=== PATIENT | female | born 1980 | race Caucasian/White ===

== ENCOUNTER → 2023-08-16 | Outpatient (CLI) | payer MEDICAID, SELFPAY ==
[2023-08-16 17:16] LABS: Hematocrit 40.3 % (37-47); Hemoglobin 12.7 g/dL (12.0-15.0); Mean Corp Hgb Conc 31.5 g/dL (32-36); Mean Corpuscular Hgb 30.5 pg (27.0-32.0); Mean Corpuscular Volume 96.6 fL (81-99); Mean Platelet Vol. 11.5 fl (6.2-12.0); Platelet Count 310 K/mm3 (150-450); RBC Distribution Width CV 12.7 % (11.6-14.6); RBC Distribution Width SD 45.2 fl (35.1-43.9); Red Blood Count 4.17 M/mm3 (4.2-5.4); White Blood Count 7.7 K/mm3 (4.4-11.0)
[2023-08-16 18:00] LABS: hCG Titer Quant., Serum 934 mIU/mL (1-3)
== END | disposition home or self-care (01) ==
PROVIDERS: Visit Provider Obstetrics & Gynecology
DX: O03.9 Complete or unspecified spontaneous abortion without complication (principal); O46.90 Antepartum hemorrhage, unspecified, unspecified trimester
CPT/HCPCS: 36415; 84702; 85027; 86900; 86901

== ENCOUNTER → 2024-05-09 | Outpatient (CLI) | payer MEDICAID, SELFPAY ==
[2024-05-09 13:28] LABS: Absolute Lymphocyte Count 1.08 X10^3/uL (0.83-4.51); Absolute Neutrophil Count 3.1 X10^3/uL (2.0-7.7); Basophil# 0.06 X10^3/uL; Basophil% 1.3 % (0-1); Eosinophils% 2.1 % (0-5); Hematocrit 39.7 % (37-47); Hemoglobin 12.9 g/dL (12.0-15.0); Lymphocyte # 1.08 X10^3/ul (0.83-4.51); Lymphocyte % 22.9 % (19-41); Mean Corp Hgb Conc 32.5 g/dL (32-36); Mean Corpuscular Volume 95.4 fL (81-99); Mean Platelet Vol. 12.2 fl (6.2-12.0); Monocyte# 0.39 X10^3/uL; Monocyte% 8.3 % (0-10); NRBC Flagged by Analyzer 0 % (0-5); Neutrophil # 3.07 X10^3/uL (2.7-7.7); Platelet Count 205 K/mm3 (150-450); RBC Distribution Width SD 42.5 fl (35.1-43.9); Red Blood Count 4.16 M/mm3 (4.2-5.4); White Blood Count 4.7 K/mm3 (4.4-11.0)
[2024-05-09 13:58] LABS: Hemoglobin A1c 4.9 % (3.8-5.6)
[2024-05-09 14:01] LABS: ALB/GLOB Ratio 1.1 RATIO (0.9-2.4); AST(SGOT) 25 U/L (15-37); Alanine Aminotransfer ALT/SGPT 25 U/L (13-56); Albumin, Serum 3.7 g/dL (3.2-5.0); Alkaline Phosphatase 72 U/L (45-117); Anion Gap 8 (5-15); BUN 15 mg/dL (7-18); Calcium,Total 8.5 mg/dL (8.5-10.1); Chloride 105 mmol/L (98-107); Creatinine, Serum 0.71 mg/dL (0.55-1.02); EST Glomerular Filtration Rate 95 mL/min (>60); Est Glom Filt Rate - Afr Amer 115 mL/min (>60); Globulin 3.3 g/dL (2.2-4.2); Glucose 123 mg/dL (74-106); Potassium 3.7 mmol/L (3.5-5.1); Sodium Level 139 mmol/L (136-145)
== END | disposition home or self-care (01) ==
PROVIDERS: PCP Nurse Practitioner Family; Referring Provider Nurse Practitioner Family; Visit Provider Nurse Practitioner Family
DX: R55 Syncope and collapse (principal)
CPT/HCPCS: 36415; 80053; 83036; 84443; 85025

== ENCOUNTER 2025-02-15 04:35 | Inpatient (IN) | payer MEDICAID, SELFPAY ==
[2025-02-15] VITALS (49 sets, daily range): BP systolic 100–132; BP diastolic 59–73; PULSE 50–79; RESP 16–18; TEMP 36.6–36.9; O2SAT 93–100; BMI 28.9
[2025-02-15] MEDS: Lactated Ringers 1,000 ML 999 ML IV (04:35)
[2025-02-15 04:45] LABS: ROM Internal Control Test YES-OK TO RESULT pt. (Internal QC)
[2025-02-15 04:46] LABS: ROM Patient Test POSITIVE (Negative); Record Kit Lot#, ROM+ K3358
[2025-02-15 05:23] LABS: Absolute Lymphocyte Count 1.39 X10^3/uL (0.83-4.51); Absolute Neutrophil Count 3.7 X10^3/uL (2.0-7.7); Basophil# 0.03 X10^3/uL; Basophil% 0.5 % (0-1); Eosinophil# 0.07 X10^3/uL; Eosinophils% 1.2 % (0-5); Hematocrit 39.5 % (37-47); Hemoglobin 13.4 g/dL (12.0-15.0); Lymphocyte # 1.39 X10^3/ul (0.83-4.51); Lymphocyte % 23.8 % (19-41); Mean Corp Hgb Conc 33.9 g/dL (32-36); Mean Corpuscular Volume 94.3 fL (81-99); Mean Platelet Vol. 12.8 fl (6.2-12.0); Monocyte# 0.62 X10^3/uL; Monocyte% 10.6 % (0-10); NRBC Flagged by Analyzer 0 % (0-5); Neutrophil % 63.4 % (47-70); Platelet Count 176 K/mm3 (150-450); RBC Distribution Width CV 12.6 % (11.6-14.6); RBC Distribution Width SD 43.8 fl (35.1-43.9); Red Blood Count 4.19 M/mm3 (4.2-5.4); White Blood Count 5.8 K/mm3 (4.4-11.0)
--- NOTE | 2025-02-15 06:04 | PLAC_PTH ---
PATIENT: PACO RAMIREZ LOC: [facility] U#:[id number] AGE/SX: 45/F ROOM: WP017 RE02/15/[address]: Dr. Janine Deutsch, MDDOB: 1980 BED: 1 DIS: 02/16/2025 SPEC #: [id number] RECD: 02/15/25 07:19 STATUS: ALEJANDRINA STEELEIdania #: [id number] VIANEY: 02/15/25 06:[address]: Janine Deutsch DEPT: SURGICAL PATHOLOGY RECD BY: Nikhil Trevino ENTERED: 02/16/25 08:55 SP TYPE: PLACENTA OTHR DR: Nava Grey, [facility], HOT BALLER-C Tissues: A - Placenta, NOS Procedures: Surgery Specimen Level V HEADER OPERATION: Delivery PRE-OP DIAGNOSIS: Routine TISSUE SUBMITTED: A- Placenta MICROSCOPIC DIAGNOSIS A. Placenta, delivery: * Eccentrically inserted and trivascular umbilical cord without active inflammation * Marginally inserted membranes without active inflammation and with increased number of pigmented macrophages suggesting meconium * Mature (third trimester) placenta without active inflammation and with increased number of pigmented macrophages, suggesting meconium and with one intramural infarct (1.2 cm in maximum diameter) MICROSCOPIC DESCRIPTION Slides are reviewed. GROSS DESCRIPTION A. Received in formalin in a container labeled with the patient's name, date of , and with the accompanying paperwork indicating, placenta is an 18.5 x 14.0 x 4.0 cm duarte and discoid placenta with a trimmed weight of 494.2 g. The eccentrically located white-mike umbilical cord has 3 vessels and is 58 cm in length x 1.0 cm in diameter. There are approximately 6 coils per 10 cm. The mike-barrera membranes are stripped and completely mucoid/slippery. The membranes appear to exhibit a 100% marginal attachment site. The surface is blue-barrera, mucoid and slippery, with prominent vasculature. There is a 0.9 x 0.8 cm focus of possible subchorionic fibrin comprising less than 2% of the surface. The maternal surface has red-barrera cotyledons that appear predominantly complete with a moderate amount of easily removed blood clot material. Serial sections reveal a 1.2 x 1.0 x 0.5 cm white-mike and rubbery focus with adjacent hemorrhage comprising less than 5% of the parenchymal surface. The remaining cut surfaces are red and spongy. Senior Network Systems Engineer sections:A1. Umbilical cord and membrane rollA2. Full-thickness section with possible subchorionic fibrinA3. Superficial section with rubbery area and adjacent hemorrhageA4. Full-thickness section [facility] 02-16-2025 CPT:28972
[2025-02-15 06:06] LABS: Syphilis Antibodies Nonreactive (Nonreactive)
[2025-02-15] MEDS: Oxytocin 15 Units/NS 250ml 15 UNITS/250 ML IV.SOLN 334 UNITS IV (06:10)
--- NOTE | 2025-02-15 06:35 | PCM.HP.OB ---
HPI - General General Date of Admission: 02/15/25 HPI Narrative PACO RAMIREZ, is a 45 F @ 39.2 weeks who presents c/o SROM at 3am- not feeling contractions upon arrival [facility] Medical History (Updated 02/15/25 @ 06:[address] Janine Deutsch MD) Abnormal Pap smear of cervix Allergy/AdvReac Type Severity Reaction Status Date / Time No Known Allergies Allergy Verified 02/15/25 04:08 Social History (System 11/08/23 @ 10:49 by Olya Aguila) Smoking Status: Never smoker History Elective abortions Hx Para 1 Spontaneous abortions Hx # Term Pregnancies Ectopic pregnancies Hx # Pregnancies Multiple births # of living children NST FHR Rate Baby A Baseline: 140 Variability:: Moderate Accelerations:: 15 x 15 Decelerations:: Variable NST Reactive:: Yes FHR Category:: Category II Uterine Activity:: irregular Vital Signs Vital Signs Vital Signs: 02/15/25 04:13 02/15/25 04:13 02/15/25 04:13 Temperature Temperature Source Temporal Pulse Rate 50 L Respiratory Rate Blood Pressure 124/68 H BP Systolic 124 BP Diastolic 68 Pulse Ox 02/15/25 04:13 02/15/25 04:13 02/15/25 05:09 Temperature 97.8 F Temperature Source Temporal Pulse Rate Respiratory Rate 16 Blood Pressure BP Systolic BP Diastolic Pulse Ox 02/15/25 05:09 02/15/25 05:09 02/15/25 05:09 Temperature Temperature Source Pulse Rate 61 Respiratory Rate 16 Blood Pressure 132/70 H BP Systolic 132 BP Diastolic 70 Pulse Ox 02/15/25 05:09 02/15/25 06:02 02/15/25 06:02 Temperature 97.9 F Temperature Source Pulse Rate 79 Respiratory Rate Blood Pressure BP Systolic BP Diastolic Pulse Ox 98 02/15/25 06:30 02/15/25 06:30 02/15/25 06:33 Temperature Temperature Source Pulse Rate 67 64 Respiratory Rate Blood Pressure 123/59 H BP Systolic 123 BP Diastolic 59 Pulse Ox 02/15/25 06:33 Temperature Temperature Source Pulse Rate Respiratory Rate Blood Pressure BP Systolic BP Diastolic Pulse Ox 97 Weight Weight: 91.5 kg Body Mass Index (BMI) 28.9 Physical Exam Const alert and oriented x3 General Appearance: cooperative HEENT normocephalic GI GI Narrative: Gravid, non tender to palpation. OB / External & Speculum: external exam normal Extremity normal to inspection Skin no rashes or lesions noted Neuro oriented x3 and CN's II-XII intact bilaterally Psych Appearance: grossly normal Labs Labs Labs: Blood Type O POSITIVE Antibody Screen Pending Hct 39.5 % (37-47) Hgb 13.4 g/dL (12.0-15.0) Syphilis Total Ab Nonreactive (Nonreactive) Assessment & Plan (1) AMA (advanced maternal age) multigravida 35+: (2) 39 weeks gestation of : (3) Active labor at term: PLAN: Plan Admit to L&D Mont[place] FHR/TOCO Epidural if requested for pain Monitor VS Anticipate
--- NOTE | 2025-02-15 06:37 | EX.PCM.OBVAG ---
Vaginal Delivery Maternal Presentation Maternal Presentation: Active Labor and Spontaneous Rupture of Membranes Vaginal Delivery Information Procedure Performed: Spontaneous Vaginal Delivery Surgeon/Practitioner: Janine Deutsch Date of Procedure: 02/15/25 Pre-Procedure Diagnosis: AMA, SROM, Active labor at 39 weeks gestation Post-Procedure Diagnosis: same, precipitous delivery, live female Type of anesthesia: None Estimated Blood Loss: 150 Time of Delivery: 06:04 Findings Description of procedure: Patient presented to labor and delivery with spontaneous rupture membranes was found to be 4/60/-2. Patient progressed quickly to fully dilated and began to push. I was notified of status at 0601 and was enroute to hospital- pt delivered spontaneously with nursing staff available at 0604. upon my arrival placenta was still intact. pitocin IV was started and Placenta was delivered intact- there were trailing membranes that were removed completely. placenta appeared to have clots present and will be sent to pathology for possible abruption. 1st degree periurethral laceration that was actively bleeding superior and left adjacent to it. this was repaired with 3-0 rapide. excellent hemostasis noted. correct needle, instrument and lap count Presentation: Vertex Amniotic Membrane Rupture Type: Spontaneous Amniotic Fluid Description: Clear Placental Delivery Description: Spontaneous Placenta Disposition: Sent to Pathology Specimen collected: Yes Description of specimen(s) removed: placenta Cord Vessel Description: 3 Vessels Cord Entanglement: None A Gender: Female (1 minute): 8 (5 minute): 9 Delayed Cord Clamping: Yes Heel Slugger lifestyle block farmer: No Post Vaginal Deli Medications given after delivery: IV Pitocin Episiotomy Description: None Laceration: Periurethral Extnsion/lac and 1st degree Complication Complications: No
[2025-02-15] MEDS: Lidocaine 1% (20 ml mdv) 20 ML Vial INFILT (06:40)
[2025-02-15] MEDS: Oxytocin 15 Units/NS 250ml 15 UNITS/250 ML IV.SOLN 83 UNITS IV (06:41)
[2025-02-15 07:20] LABS: Pathology Specimen OB SEE PATHOLOGY REPORT
[2025-02-15] MEDS: Acetaminophen 500 MG Tablet 1000 MG PO ×2 (08:40→16:09)
[2025-02-15] MEDS: Ibuprofen 600 MG Tablet PO (20:49)
[2025-02-16] VITALS (8 sets, daily range): BP systolic 104–121; BP diastolic 66–75; PULSE 54–61; RESP 16–18; TEMP 36.1–36.8; O2SAT 92–99
--- NOTE | 2025-02-16 02:53 | VDLE_ITS ---
Reason For Study Reason For Study: Right leg swelling RIGHT LEFT GSV is normal. CFV is compressible, spontaneous, phasic, competent, CFV is compressible, spontaneous, phasic, competent and demonstrates normal augmentation. and demonstrates normal augmentation. FV is compressible, phasic, and INCOMPETENT for greater than 1.0 second. POP V is compressible, spontaneous, phasic, competent and demonstrates normal augmentation. T/P Trunk is compressible. PTV is compressible. RT PerV is compressible. Thrombus filled varicose veins noted in the lateral distal thigh to mid calf. Procedure This is a venous duplex using B-mode, color flow and spectral Doppler. Exam performed portable in patient room. A preliminary report was called and/or faxed to [facility]. VL/Venous Duplex US, Unilateral Interpretation Summary Deep veins of the right lower extremity are patent and compressible segmentally . There is no evidence of right lower extremity deep vein thrombosis. The right femoral vein is incompetent. The righ t great saphenous vein appears patent and compressible segmentally. Acute superficial thrombophlebitis is noted involving superficial varicosities in the lateral aspect of the right distal thigh and proximal/mid-calf. The left common femoral vein is patent and competent. Ordering Physician: Janine Deutsch Referring Physician: Nava Grey Performed By: Comfort Wall RVT
[2025-02-16 02:57] LABS: Absolute Lymphocyte Count 1.67 X10^3/uL (0.83-4.51); Absolute Neutrophil Count 7.2 X10^3/uL (2.0-7.7); Basophil# 0.06 X10^3/uL; Basophil% 0.6 % (0-1); Eosinophil# 0.22 X10^3/uL; Eosinophils% 2.2 % (0-5); Hematocrit 36.7 % (37-47); Hemoglobin 12.4 g/dL (12.0-15.0); Lymphocyte # 1.67 X10^3/ul (0.83-4.51); Lymphocyte % 16.6 % (19-41); Mean Corp Hgb Conc 33.8 g/dL (32-36); Mean Corpuscular Hgb 32.2 pg (27.0-32.0); Mean Corpuscular Volume 95.3 fL (81-99); Mean Platelet Vol. 12.5 fl (6.2-12.0); Monocyte# 0.91 X10^3/uL; NRBC Flagged by Analyzer 0 % (0-5); Neutrophil # 7.18 X10^3/uL (2.7-7.7); Neutrophil % 71.2 % (47-70); Platelet Count 156 K/mm3 (150-450); RBC Distribution Width CV 12.9 % (11.6-14.6); RBC Distribution Width SD 44.8 fl (35.1-43.9); Red Blood Count 3.85 M/mm3 (4.2-5.4); White Blood Count 10.1 K/mm3 (4.4-11.0)
[2025-02-16 03:24] LABS: International Normalized Ratio 0.9; Partial Thromboplast Time 26.5 Seconds (24.1-36.2); Prothrombin Time (Protime)PT. 12.2 SECONDS (11.7-14.9)
[2025-02-16] MEDS: Ibuprofen 600 MG Tablet PO (04:11)
--- NOTE | 2025-02-16 08:42 | PN.OBGYN_ITS ---
Subjective Subjective Patient is doing well. She denies chest pain, shortness of breath, palpitations. She notes a superficial firmness over her right calf that is tender to touch. Lochia is been normal. She has been ambulating and voiding without difficulty. Tolerating a regular diet without nausea or vomiting. going well. She would like to go home today. Objective Data Objective Data Vital Signs: Vital Signs Temp Pulse Resp BP Pulse Ox O2 Del Method 97.0 F L 57 L 16 121/72 H 96 Room Air 02/16/25 04:00 02/16/25 04:00 02/16/25 04:00 02/16/25 04:00 02/16/25 04:00 02/16/25 04:00 Oxygen Delivery Method Room Air Weight: 201 lb 11.567 oz Body Mass Index (BMI) 28.9 Intake & Output: Intake and Output for Last 24 Hours 02/14/25 02/15/25 02/16/25 23:59 23:59 23:59 Intake Total 965.67 / 965.67 Output Total 150 / 150 Balance 815.67 / 815.67 Lab / Micro Data 02/16/25 02:50 Labs: Laboratory Results - last 24 hr 02/16/25 02:50: WBC 10.1, RBC 3.85 L, Hgb 12.4, Hct 36.7 L, MCV 95.3, MCH 32.2 H , MCHC 33.8, RDW Std Deviation 44.8 H, RDW Coeff of Kodak 12.9, Plt Count 156, MPV 12.5 H, Immature Gran % (Auto) 0.400, Neut % (Auto) 71.2 H, Lymph % (Auto) 16.6 L, Real % (Auto) 9.0, Eos % (Auto) 2.2, Baso % (Auto) 0.6, Absolute Neuts (auto) 7.2, Absolute Lymphs (auto) 1.67, Nucleated RBC % 0, PT 12.2, INR 0.9, APTT 26.5 Physical Exam Const alert and no apparent distress Constitutional Narrative: infant General Appearance: comfortable HEENT normocephalic Resp normal respiratory effort Extremity no calf tenderness Extremity Narrative: Tenderness and superficial firmness palpated along right outer lower extremity. Trace edema bilaterally. No erythema or warmth Assessment & Plan (1) Vaginal delivery: PLAN: PPD#1 s/p . Doing well. Reviewed d/c instructions. Possible d/c home today pending results of LE doppler US.
--- NOTE | 2025-02-16 08:51 | DCINST_ITS ---
Discharge Instructions Diet Discharge Diet: No restrictions DC O2, CPAP, BIPAP needs Home O2 Discharge instructions: No Dressing / Incision Discharge Activity: May Drive and May Shower May resume sexual activity in: 6 weeks Weight Bearing Status: Weight bearing as tolerated Lifting Restrictions: nothing heavier than baby Dressing / Incision Call your doctor if you observe: Fever of 101 or Higher, Coldness, Increased Pain, Inability to urinate, Inability to have a bowel movement, Using more than 1 pad per hour, Shortness of breath, Swelling in the ankles, Chest pain, Increased palpitations (irregular heartbeat), Calf discomfort and Uncontrolled pain Follow Up Care When: 1 week early visit 6 weeks exam Test Results: Test results from this visit will be discussed in further detail at your follow- up appointment, if applicable. Discharge Plan Admission Admit Date/Time: 02/15/25 04:35 Primary Reason for Your Visit: delivery Attending Provider: Janine Deutsch Primary Care Provider: Nava Grey Instructions Patient Instructions: After a Vaginal Delivery ([facility]) Discharge Orders/Prescriptions Referrals / Follow Up: Nava Grey, PEDIATRIC INTENSIVE PHYSICIAN-C [Primary Care Provider] - Disposition Disposition (needs filled in before D/C Order can be placed): Home, Self Care
[2025-02-16] MEDS: Senna/Docusate Sodium 1 Tablet PO (10:42)
[2025-02-16] MEDS: Acetaminophen 500 MG Tablet 1000 MG PO (10:43)
[2025-02-16] MEDS: Enoxaparin 40 MG/0.4 ML Syringe SC (15:39)
--- NOTE | 2025-02-17 12:00 | CASEMGMT ---
Social Work Assessment Labor and Delivery Unit Patient Address: [address] [place] [address] Phone number: [phone] Date of Referral: 02/16/25 Time of Referral:? 729 Referred By: Dr. Alfredo Elliott Date of Intervention: ?02/17/25? Time of Intervention:? 0 Reason for Referral:? PTSD Sw completed chart review and acknowledges social work consult due to maternal mental health. Sw presented to bedside and introduced self to mother of baby (MOB- Leandra) and father of baby (FOOnur- Dameon Logee). Sw explained reason for sw involvement and completed psychosocial assessment. History obtained from: medical records, MOB and FOB Household composition: Currently residing in the family home is MOB, BAYRON, VAISHALI's 3 year old daughter- Clarita and baby when ready for discharge. Parents state that they recently moved in together in preparation for baby's arrival. No concerns with housing reported, stating house is safe and secure. Patient's parent/guardian status:? VIASHALI states that she and BAYRON have only been together for one year, however they have known each other and been friends for much longer than that. Parents met while both work at [email or web address]. baby is first baby for parents together. VAISHALI states that was a surprised and unexpected, but very much welcomed. VAISHALI states that she and BAYRON had talked about getting and having children together, but the happened out of the blue. ? Medical History: ?VAISHALI is 45 female who is 3, para 1- now 2 following labor and delivery of . VAISHALI received routine care during with [facility]. VAISHALI presented to hospital in active labor and delivered baby via vaginal delivery on 02/15/25 at 39 weeks gestation. Baby girl, named Ksenia Gregorio, was born weighing 7lb 16oz with apgars of 8 and 9 at one and five minutes of life, respectfully. VAISHALI is breast feeding and states that baby will be followed by Dr. Cortes. Educational Status:? Both parents graduated from high school and obtained advanced degrees. VAISHALI has her Bachelor's degree and BAYRON is finishing up his Bachelor's degree. No problems with reading, learning or comprehension. Financial Status: Both parents are gainfully employed outside of the home. Both parents are employed at [employer]. 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 Infant Supplies:??All necessary baby supplies obtained, including: car seat, safe sleep space, clothes, diapers and wipes. Childcare/Caregiver(s):? VAISHALI states that she will be the primary caregiver to baby, and maternal grandma able to assist with childcare needs. Transportation:?? Both parents have their drivers license and reliable means of transportation, no barriers. Programs/Agencies Involved: ???VAISHALI is connected to insurance provided through [employer]. VAISHALI states that they are over income for other resources that may provide financial assistance. Children Services/Legal Issues:???No prior involvement with children services, no issues or concerns warranting referral to be made at this time. Behavioral Health Issues: ??Mental Health History: BAYRON states that he has some anxiety, and ADHD. He is prescribed Adderall that he takes intermittently. VAISHALI has been diagnosed with PTSD- and reports that this is following an incident that happened to her earlier this year. VAISHALI did not want to discuss details, but reports that she has been waking up from nightmares several times a week. VAISHALI states that she also has OCD and an eating disorder. VAISHALI states that she prefers to have control over everything in her life and she does not like how it feels when she is not in control of things. VAISHALI states that she has been connected to counseling in the past, but is not connected to anyone at this time. VAISHALI stated that she usually puts too much on her plate and pushes her self to hard. VAISHALI admits that she find her self worth in pushing herself physically. VAISHALI and KASIOnur talked about how she has worked on this, especially throughout this and with the support provided from BAYRON.??VAISHALI states that she did struggle with depression and anxiety after her daughter was born. VAISHALI states that she was living in [place] at the time and felt alone and isolated. ? Substance Use History:?Parents deny substance use history. ? Family History:?Parents deny substance use prior to and during . ? Drug Screens: ?No drug screens observed while completing chart review. ? Family/Social Stressors:?VAISHALI states that the trauma she experienced in the last year has been a significant issue for her to process and work through.MOB states that she continues to have nightmares, but they are more sporadic now than what they used to be. MOB and FOB state that although they have only been together for one year, they see a future together and feel the experience of labor and delivery has made them stronger. MOB able to recognize that her mental health during this period may be impacted as a result of her trauma history, anxiety/ depression and her need to feel and be in control. Sw and MOB talked about her willingness and openness to get involved with mental health supports, and MOB is receptive. Support Systems: MOB states that her aunts and her grandparents are her biggest supports. Depression/Shaken Baby/Safe Sleeping:? Sw and parents talked about signs and symptoms of baby blues and depression and anxiety. MOB discloses that she struggled in the past with symptoms after her first daughter was born. 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 MOB able to recognize how hormonal changes and her mental health history will significantly impact her journey. FOB states that he is always able to tell when she is struggling, and is able to help her. FOB states that sometimes the struggle is that MOB will act as though nothing is wrong and keep pushing herself, even when she needs to slow down and let someone help her. MOB receptive to mental health supports. Sw educated parents on shaken baby prevention and the ABCs of safe sleep, parents express understanding. ASSESSMENT:? MOB and baby admitted following labor and delivery of . MOB with mental health history, trauma history and depression history. MOB states that she is aware that she may struggle during this period, and states that she is open to getting connected to mental health services and supports. Sw provided MOB with information on [facility] and [facility]. MOB expressed appreciation. MOB and FOB both present and active in caring for while sw completed assessment. Both parents were talkative and open to talking about their mental health history. Parents were observed to be supportive to one another, and observed to love and provide appropriate hands on care to . MOB states that she has more supports following this delivery now that she has moved home to [place] from [place] (where she lived when she had her first baby). MOB stated that she will look into getting an appointment scheduled in order to be prepared to address any concerns or issues that may arise during this period. PLAN:? No other services requested or indicated. MOB and baby to be discharged when medically ready. Parents were provided literature regarding: signs and symptoms of baby blues and mood and anxiety disorders, Help Me Grow, shaken baby prevention, ABCs of safe sleep and a list of county resources that are available for them should any needs present themselves. Gloria Fischer, WATER VALVE MECHANIC, MRI TECHNOLOGIST
--- NOTE | 2025-03-17 08:42 | NURSING ---
edited delivery record to reflect provider. Christie
== END 2025-02-16 16:10 | disposition home or self-care (01) | DRG 560 ==
LOC: WPOUT 04:38 → WP 04:38
PROVIDERS: Admitting Provider Obstetrics & Gynecology; PCP Nurse Practitioner Family; Referring Provider Obstetrics & Gynecology; Visit Provider Obstetrics & Gynecology
DX: O42.02 Full-term premature rupture of membranes, onset of labor within 24 hours of rupture (principal); Z37.0 Single live birth; M79.89 Other specified soft tissue disorders; O99.893 Other specified diseases and conditions complicating puerperium; O62.3 Precipitate labor; O70.0 First degree perineal laceration during delivery; Z3A.39 39 weeks gestation of pregnancy
CPT/HCPCS: 59025; 59050; 84112; 85025; 85610; 85730; 86780; 86850; 86900; 86901; 88307; 93971; 99221; G0378